=== PATIENT | male | born 1970 | race Caucasian/White ===

== ENCOUNTER 2016-10-04 06:37 | Emergency (ER) | payer OTHER ==
[~2016-10-04] VITALS: Ht 175.2 cm; Wt 86.2 kg
[~2016-10-04 06:37] MED LIST: HYDROCODONE BIT1 T11 PO; NAPROSYN500 MG PO; NKHM
== END 2016-10-04 07:40 | disposition home or self-care (01) ==
LOC: ED 06:37
DX: H01.004 Unspecified blepharitis left upper eyelid (principal); H10.32 Unspecified acute conjunctivitis, left eye; F17.200 Nicotine dependence, unspecified, uncomplicated

== ENCOUNTER → 2017-12-24 | Outpatient (CLI) | payer OTHER ==
[2017-12-24 08:47] LABS: HEMATOCRIT 45.5 % (42.0-52.0); HEMOGLOBIN 15.9 g/dl (14.0-18.0); MEAN CELL VOLUME 98.5 fl (80.0-94.0); MEAN CORPUSCULAR HGB 34.4 pg (27.0-31.0); MEAN CORPUSCULAR HGB CONC 34.9 g/dl (33.0-37.0); MEAN PLATELET VOLUME 8.5 fl (9.6-12.3); RED BLOOD COUNT 4.62 10*6/uL (4.50-5.90); RED CELL DISTRI WIDTH 11.4 % (0-14.5); WHITE BLOOD COUNT 11.1 10*3/uL (4.8-10.8)
[2017-12-24 09:25] LABS: ALBUMIN 4.3 gm/dl (3.1-4.5); ALKALINE PHOSPHATASE 91 U/L (45-117); BUN 10 mg/dl (7-24); CHLORIDE 107 mmol/L (98-107); CHOLESTEROL 176 mg/dL (<200); CREATININE 0.98 mg/dL (0.70-1.30); HDL CHOLESTEROL 32 mg/dl (40-60); LDL CHOLESTEROL 111 mg/dL (9-159); POTASSIUM 4.5 mmol/L (3.5-5.1); SGOT/AST 14 IU/L (3-35); SGPT/ALT 28 U/L (12-78); SODIUM 141 mmol/L (136-145); TRIGLYCERIDES 167 mg/dl (<150); VLDL CHOLESTEROL 33 mg/dL (6-40)
== END | disposition home or self-care (01) ==
LOC: LAB 08:28
PROVIDERS: Registered Nurse Flight
DX: Z13.220 Encounter for screening for lipoid disorders (principal); Z12.5 Encounter for screening for malignant neoplasm of prostate; I10 Essential (primary) hypertension